=== PATIENT | female | born 1975 | race Caucasian/White ===

== ENCOUNTER 2017-02-09 20:22 | Emergency (ER) | payer OTHER ==
[2017-02-09 20:23] VITALS: BMI 29.2
[2017-02-09 21:25] VITALS: RESP 18; TEMP 98.4
[2017-02-09] MEDS ORDERED: TDAP Vaccine 0.5 mL Syr IM ONE (22:54)
[2017-02-09] MEDS ORDERED: Lidocaine 2% Inj (20ml) IJ STA (22:54)
--- NOTE | 2017-02-10 00:56 | ED PDOC ---
Arrival/HPI - General Chief Complaint: Finger,Hand,&Wrist Time Seen by Provider: 02/09/17 22:54 Historian: Patient - History of Present Illness Narrative History of Present Illness (Text): 02/10/17 00:56 41-year-old female presents today with a laceration to the left thumb patient states she was using a knife to cut food and sustained a laceration to the tip of the left thumb. Patient complaining of pain at the laceration site. Patient unsure of her last tetanus shot. Incident occurred prior to arrival. Patient denies numbness tingling or weakness in the extremity. No other complaints Past Medical History - Provider Review Nursing Documentation Reviewed: Yes - Travel History Have you recently traveled outside [place] w/in the past 3 mons?: No - Tetanus Immunization Tetanus Immunization: Unknown - Neurological Hx Dizziness: Yes - Musculoskeletal/Rheumatological Hx Arthritis: Yes Hx Back Pain: Yes - Psychiatric Hx Substance Use: No - Surgical History Hx Section: Yes (x 2) - Anesthesia Hx Anesthesia: No Family/Social History - Physician Review Nursing Documentation Reviewed: Yes Family/Social History: Unknown Family HX Smoking Status: Never Smoked Hx Alcohol Use: No Hx Substance Use: No Allergies/Home Meds Allergies/Adverse Reactions: Allergies No Known Allergies Allergy (Verified 02/09/17 21:20) Home Medications: Home Meds Medication Instructions Recorded Confirmed Escitalopram [Lexapro] 20 mg PO DAILY 11/24/15 11/24/15 Meclizine HCl 12.5 mg PO DAILY 11/24/15 11/24/15 Naproxen 500 mg PO BID PRN 11/24/15 11/24/15 Review of Systems - Review of Systems Constitutional: absent: Fatigue, Fevers Respiratory: absent: SOB, Cough Cardiovascular: absent: Chest Pain, Palpitations Gastrointestinal: absent: Abdominal Pain, Nausea, Vomiting Musculoskeletal: Arthralgias Skin: Laceration Neurological: absent: Headache Physical Exam Vital Signs Reviewed: Yes Vital Signs Temp Pulse Resp BP Pulse Ox 02/10/17 01:32 82 18 138/68 98 02/09/17 21:24 98.4 F 76 18 103/72 99 Temperature: Afebrile Blood Pressure: Normal Pulse: Regular Respiratory Rate: Normal Appearance: Positive for: Well-Appearing, Non-Toxic, Comfortable Pain Distress: None Mental Status: Positive for: Alert and Oriented X 3 - Systems Exam Head: Present: Atraumatic Mouth: Present: Moist Mucous Membranes Neck: Present: Normal Range of Motion Respiratory/Chest: Present: Clear to Auscultation, Good Air Exchange. No: Respiratory Distress, Accessory Muscle Use Cardiovascular: Present: Regular Rate and Rhythm, Normal S1, S2. No: Murmurs Upper Extremity: Present: Normal ROM, NORMAL PULSES, Tenderness (left thumb; there is a c shaped approx. 2cm partial avulsion to the distal tip of the thumb and distal tip of nail; no active bleeding; ), Neurovascularly Intact, Capillary Refill < 2s. No: Swelling, Erythema Neurological: Present: Speech Normal Skin: Present: Warm, Dry Psychiatric: Present: Alert, Oriented x 3 Medical Decision Making ED Course and Treatment: 02/10/17 01:11 Patient is nontoxic well appearing in no distress. Vital signs are stable. Wound irrigated well with high pressure irrigation Tetanus updated Motrin keflex po Laceration repair: 4 sutures placed Bacitracin and dressing applied, finger splint applied. Patient was advised to keep the wound clean and dry, apply bacitracin twice daily. advised f/u with hand specialist within the next 2 days due to injury to nail/partial avulsion tip of finger/nail. Advised to return immediately if signs of infection develop or return if any other concerning symptoms develop. Patient verbalizes understanding of discharge instructions and need for immediate followup. all aspects of this case were discussed the attending of record. Impression: Laceration, thumb, partial avulsion tip of finger Motrin every 6 hours as needed for pain keflex: 1 capsule 4 times daily x 5 days Keep the wound clean and dry, apply bacitracin twice daily Return in 10 days for suture removal Return immediately if signs of infection develop: High fevers, increasing pain, redness, swelling, purulent discharge Follow up with the Hand specialist within the next 2 days. Followup with primary care physician within the next 2 days Return if any other concerning symptoms develop - Medication Orders Current Medication Orders: Discontinued Medications Cephalexin Monohydrate (Keflex) 500 mg PO STAT STA PRN Reason: Protocol Stop: 02/10/17 00:38 Last Admin: 02/10/17 01:24 Dose: 500 mg Ibuprofen (Motrin Tab) 600 mg PO STAT STA Stop: 02/10/17 00:38 Last Admin: 02/10/17 01:23 Dose: 600 mg MAR Pain/Vitals Document 02/10/17 01:23 SS (Rec: 02/10/17 01:23 SS [facility] [id number]) Pain Reassessment Is This A Pain ReAssessment? No Sleep Is patient sleeping during reassessment? No Presence of Pain Presence of Pain Yes Location Left, Right or Bilateral Left Pain Location Body Site Thumb Lidocaine HCl (Lidocaine 2% 20ml Vial) 3 ml IJ ONCE STA Stop: 02/09/17 22:55 Last Admin: 02/09/17 23:09 Dose: 3 ml Tetanus/Reduced Diphtheria/Acell Pertussis (Boostrix Vaccine Inj) 0.5 ml IM .ONCE ONE Stop: 02/09/17 22:55 Last Admin: 02/09/17 23:16 Dose: 0.5 ml Immunization Registry Document 02/09/17 23:16 SS (Rec: 02/09/17 23:16 [facility] [id number] Immunization Registry Consent Date 02/09/17 Procedure: Wound Repair - Procedure Procedure: Wound Repair: laceration, finger - Consent Obtained Consent obtained: Verbal - Performed by Performed by: Mid-level Provider - Indications Indication(s):: Laceration - Location Finger:: Left, Thumb Shape:: Curvilinear (c shaped partial avulsion to tip of thumb and nail) Dimensions Length cm: 2cm - Anesthetic Technique Anesthetic Technique: Regional block (digital block) Local/Regional Anesthetic:: Lidocaine 2% - Debris Debris:: None - Irrigated Irrigated with ml of normal saline: copious amounts of NS using high pressure irrigation - Complexity Complexity:: Simple (one layer) - Wound repair method Sutures:: # (4 total (2 4.0 vicryl interrupted to align the nail, 2 5.0 nylon interrupted)) - Complications Complications: none - Patient tolerated procedure Patient Tolerated Procedure:: Well Disposition/Present on Arrival - Present on Arrival Any Indicators Present on Arrival: No History of DVT/PE: No History of Uncontrolled Diabetes: No Urinary Catheter: No History of Decub. Ulcer: No History Surgical Site Infection Following: None - Disposition Have Diagnosis and Disposition been Completed?: Yes Diagnosis: Laceration of thumb with damage to nail Disposition: HOME/ ROUTINE Disposition Time: 01:00 Patient Plan: Discharge Condition: GOOD Discharge Instructions (ExitCare): Care For Your Stitches (ED), Laceration (ED) Additional Instructions: Motrin every 6 hours as needed for pain keflex: 1 capsule 4 times daily x 5 days Keep the wound clean and dry, apply bacitracin twice daily Return in 10 days for suture removal Return immediately if signs of infection develop: High fevers, increasing pain, redness, swelling, purulent discharge Follow up with the Hand specialist within the next 2 days. Followup with primary care physician within the next 2 days Return if any other concerning symptoms develop Prescriptions: Cephalexin [Keflex] 500 mg PO QID #20 capsule Ibuprofen [Motrin] 600 mg PO Q6H PRN #20 tab PRN Reason: pain/fever reduction Referrals: Corey Denney MD [Primary Care Provider] - Follow up with primary Manoj Leigh MD [Staff Provider] - Follow up with primary Maye Santana MD [Staff Provider] - Follow up with primary Damon Stokes MD [Staff Provider] - Follow up with primary Marshall Culver MD [Staff Provider] - Follow up with primary Forms: [facility] (American), WORK NOTE
[2017-02-10 01:32] VITALS: BP 138/68; PULSE 82; O2SAT 98
== END 2017-02-10 01:32 | disposition home or self-care (01) ==
LOC: ED 20:22
DX: S61.012A Laceration without foreign body of left thumb without damage to nail, initial encounter (principal); W26.0XXA Contact with knife, initial encounter; Z23 Encounter for immunization